=== PATIENT | male | born 1965 | race Caucasian/White ===

== ENCOUNTER → 2016-11-03 | Outpatient (CLI) | payer BC ==
--- NOTE | 2016-11-03 16:25 | DI ---
MRI LOW EXTREMITY JNT W/O CN,11/03/2016 12:37 PM: Clinical History: Right hip pain and decreased range of motion. Previous Exam: None at this facility. Findings: Multiplanar MR images are obtained through the right hip without contrast. Bony alignment is anatomic . No fractures are seen. Marrow signal is preserved. Visualized portions of the urinary bladder are unremarkable. There is mild prominence of the prostate . The major vascular flow voids are unremarkable. Signal within the musculature is unremarkable. There are some mild osteophyte formation involving the head neck junction of the right proximal femur . There is some mild irregularity of the articular cartilage along the weightbearing surface of the timmy tabulum without subchondral cyst formation. Impression: 1. Mild early degenerative changes of the right hip with some increased bone density and osteophyte f ormation at the head neck junction of the right proximal femur. This may represent some underlying fe moral acetabular impingement. Correlate clinically. 2. Mild degenerative tearing of the right superior lateral acetabular labrum. 3. No fractures.
== END ==
LOC: MRI 10:41
PROVIDERS: ATTEND Physician Assistant Medical
DX: M25.551 Pain in right hip (principal); M25.751 Osteophyte, right hip
CPT/HCPCS: 73721

== ENCOUNTER → 2016-11-08 | Outpatient (CLI) | payer BC ==
--- NOTE | 2016-11-09 10:40 | DI ---
XR HIP COMPLETE MIN 2VW U/L,11/08/2016 4:06 PM: Clinical History: Right hip pain Previous Exam: None at this facility. Findings: AP and crosstable lateral views of the right hip are obtained, and demonstrate anatomic alignment wit hout fractures. There is distal great deformities noted bilaterally without fracture and no osteophyt e formation. 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 Correlate clinicall y.
== END ==
LOC: ORTHO 16:16
PROVIDERS: ATTEND Orthopaedic Surgery
DX: M25.551 Pain in right hip (principal); M25.851 Other specified joint disorders, right hip
CPT/HCPCS: 73502

== ENCOUNTER 2016-11-11 12:05 | Day surgery (SDC) | payer BC ==
[~2016-11-11 12:05] MED LIST: BETAMET ACET/BETAMET NA PH 6 MG/1 ML - 5 ML ONE; Iopamidol Inj 61% 50 ML VIAL ONE; LIDOCAINE MPF 2% - 5 ML (20 MG/1 ML) ONE; LIDOCAINE W/ SODIUM BICARB 0.5 ML SYR ONE; ROPIVACAINE HCL 7.5 MG/1 ML - 20 ML ONE
[2016-11-11 12:54] VITALS: RESP 18
[2016-11-11 13:29] VITALS: TEMP 98.3
== END 2016-11-11 13:15 | disposition home or self-care (01) ==
LOC: SDSC 12:05
PROVIDERS: ATTEND Orthopaedic Surgery
DX: S73.101A Unspecified sprain of right hip, initial encounter (principal)
CPT/HCPCS: 20610; 76000; J0702; J2001

== ENCOUNTER → 2016-12-29 | Outpatient (CLI) | payer BC ==
--- NOTE | 2016-12-29 12:01 | DI ---
XR SHOULDER MIN 2VW,12/29/2016 10:35 AM: Clinical History: Injury. Previous Exam: None at this facility. Findings: 3 views the left shoulder are obtained, and demonstrate anatomic alignment without fractures. The adj acent left lung and chest wall are unremarkable. Impression: Normal left shoulder.
== END ==
LOC: MOB RAD 10:43
PROVIDERS: ATTEND Physician Assistant Medical
DX: M25.512 Pain in left shoulder (principal); S43.002A Unspecified subluxation of left shoulder joint, initial encounter
CPT/HCPCS: 73030